=== PATIENT | female | born 1990 | race Hispanic/Latino ===

== ENCOUNTER 2017-09-08 09:10 | Emergency (ER) | payer BC ==
[2017-09-08 09:43] LABS: #Eosinphils 0.1 thou/uL (0.0-0.7); #Lymphocytes 2.1 thou/uL (1.20-3.40); #Monocytes 0.5 thou/uL (0.11-0.59); #Neutrophils 3.7 thou/uL (1.40-6.50); %Basophils 0.3 % (0.0-1.0); %Lymphocytes 32.5 % (21.0-51.0); %Monocytes 7.1 % (0.0-10.0); %Neutrophils 59.1 % (42.0-75.0); Mean Corpuscular HGB CONC 35.2 g/dL (32.0-36.0); Mean Corpuscular Hemoglobin 31.1 pg (27.0-31.0); Mean Corpuscular Volume 88.2 fL (78.0-98.0); Mean Platelet Volume 6.6 fL (7.4-10.4); Platelet Count 260 thou/uL (130-400); RBC Distribution Width 12.2 % (11.5-14.5); Red Blood Cell (RBC) Count 4.51 mill/uL (4.20-5.40); White Blood Cell (WBC) Count 6.3 thou/uL (4.8-10.8)
[2017-09-08 09:51] LABS: BHCG - Serum Negative (NEGATIVE); Pregs Control Background? CLEAR/WHITE (CLR/WHITE); Pregs Control Bar Appear? YES (CONTROL BAR)
[2017-09-08 10:05] LABS: ALT (SGPT) 10 U/L (8-55); AST (SGOT) 11 U/L (5-34); Albumin 4.7 g/dL (3.5-5.0); Alkaline Phosphatase 72 U/L (40-150); Anion Gap 13 mmol/L (10-20); BUN (Urea Nitrogen) 7 mg/dL (7.0-18.7); Bilirubin, Total 0.3 mg/dL (0.2-1.2); Calc. Creatinine Clearance 0 mL/min (70-130); Calcium 9.8 mg/dL (7.8-10.44); Carbon Dioxide 25 mmol/L (22-29); Chloride 106 mmol/L (98-107); Estimated GFR-MDRD Greater than 90; Globulin 3.1 g/dL (2.4-3.5); Glucose 103 mg/dL (70-105); Lipase 19 U/L (8-78); Potassium 3.8 mmol/L (3.5-5.1); Protein, Total 7.8 g/dL (6.0-8.3); Sodium 140 mmol/L (136-145)
[2017-09-08 10:54] LABS: Bilirubin Negative (Negative); Blood, Urine Negative (Negative); Clarity CLEAR (Clear); Glucose, Urine (Dipstick) Negative (Negative); Leukocyte Negative (Negative); Nitrite Negative (Negative); Protein, Urine (Dipstick) Negative (Neg-Trace); Specific Gravity, Urine 1.006 (1.002-1.036); Urobilinogen 0.2 mg/dL (0.2-1.0); pH, Urine 6.5 (5.0-9.0)
--- NOTE | 2017-09-08 12:07 | ULT ---
RIGHT UPPER QUADRANT ULTRASOUND: Date; 09/08/17 PROVIDED CLINICAL HISTORY: Epigastric pain. FINDINGS: The visualized abdominal aorta, IVC, and pancreas appear normal. The liver demonstrates no evidence f or mass or intrahepatic biliary ductal dilatation. The common duct is not dilated. Gallbladder demons trates no stones, wall thickening, or pericholecystic fluid. Right kidney demonstrates no hydronephro sis or mass. IMPRESSION: Unremarkable right upper quadrant ultrasound. POS: [facility]
== END 2017-09-08 12:19 | disposition home or self-care (01) ==
LOC: ERS 09:10
DX: R10.11 Right upper quadrant pain (principal)
CPT/HCPCS: 36415; 76705; 80053; 81003; 83690; 84703; 85025; 96360; 96361